=== PATIENT | female | born 1965 | race Caucasian/White ===

== ENCOUNTER 2017-11-08 16:07 | Emergency (ER) | payer OTHER ==
[~2017-11-08] VITALS: Wt 63.5 kg
[2017-11-08] MEDS ORDERED: AUGMENTIN 875-875 MG PO (16:46)
== END 2017-11-08 17:53 | disposition home or self-care (01) ==
LOC: ED 16:07
DX: S61.511A Laceration without foreign body of right wrist, initial encounter (principal); S61.210A Laceration without foreign body of right index finger without damage to nail, initial encounter; S61.551A Open bite of right wrist, initial encounter; S61.250A Open bite of right index finger without damage to nail, initial encounter; W54.0XXA Bitten by dog, initial encounter; Y93.89 Activity, other specified; Y92.89 Other specified places as the place of occurrence of the external cause; Y99.9 Unspecified external cause status